=== PATIENT | female | born 1960 | race Caucasian/White ===

== ENCOUNTER 2023-01-30 03:41 | Emergency (ER) | payer BC ==
[2023-01-30 03:47] VITALS: TEMP 98.7
[2023-01-30] MEDS ORDERED: SODIUM CHLORIDE 0.9% 1,000 ML IV STA (04:15)
[2023-01-30] MEDS ORDERED: ACETAMINOPHEN TAB 500 MG TAB PO STA (04:16)
[2023-01-30 04:22] LABS: Basophils % (A) 0 %; Eosinophils # (A) 0.3 k/uL (0-0.7); Eosinophils % (A) 4 %; HCT 46.6 % (34.0-46.0); Lymphocytes # (A) 2.2 k/uL (1.0-4.8); Lymphocytes % (A) 25 %; MCH 31.4 pg (25.0-35.0); MCHC 34.3 g/dL (31.0-37.0); MCV 91.7 fL (80.0-100.0); Mean Platelet Volume 7.2; Monocytes # (A) 0.4 k/uL (0-1.0); Monocytes % (A) 5 %; Neutrophils # (A) 5.8 k/uL (1.3-7.7); Neutrophils % (A) 65 %; Platelet Count 224 k/uL (150-450); RBC 5.08 m/uL (3.80-5.40); RDW 12.1 % (11.5-15.5); WBC 8.9 k/uL (3.8-10.6)
[2023-01-30 04:35] LABS: INR 0.9 (<1.2); Partial Thromboplastin Time 22.7 sec (22.0-30.0); Prothrombin Time 9.4 sec (9.0-12.0)
[2023-01-30 04:36] LABS: ALT 19 U/L (4-34); AST 28 U/L (14-36); African American GFR (CKD) >90 (>60 ml/min/1.73 sqM); Albumin 4.5 g/dL (3.5-5.0); Alkaline Phosphatase 92 U/L (38-126); Anion Gap 6 mmol/L; Blood Urea Nitrogen 19 mg/dL (7-17); Calcium 9.7 mg/dL (8.4-10.2); Carbon Dioxide 30 mmol/L (22-30); Chloride 102 mmol/L (98-107); Glucose 108 mg/dL (74-99); Lipase 131 U/L (23-300); Magnesium 2.1 mg/dL (1.6-2.3); Non-African American GFR(CKD) 90 (>60 ml/min/1.73 sqM); Potassium 3.4 mmol/L (3.5-5.1); Sodium 138 mmol/L (137-145); Total Bilirubin 0.9 mg/dL (0.2-1.3); Total Protein 7.4 g/dL (6.3-8.2)
--- NOTE | 2023-01-30 04:53 | ED ---
General Adult HPI - General Source: patient, RN notes reviewed, old records reviewed Mode of arrival: ambulatory Limitations: no limitations <Alexandre Hawkins - Last Filed: 01/30/23 06:15> <Gordon Norris - Last Filed: 01/30/23 08:47> - General Chief complaint: Chest Pain Stated complaint: Chest pain Time Seen by Provider: 01/30/23 03:56 - History of Present Illness Initial comments: Patient is a 62-year-old female with past medical history remarkable for hypertension who presents emergency Department complaining of intermittent chest pressure sensation for the last hour and a half or so. Describes it as a strange pressure and discomfort located along the sternum of her chest that does not radiate. It is reproducible on palpation. Patient is also complaining of some back pain that has been present for over a week. Describes it as across her upper back as a burning sensation. No known palliative or provocative factors. No significant cardiac history. No history of blood clots. Denies any shortness of breath. Denies fevers, chills, cough. Denies abdominal pain, nausea, vomiting. No other acute complaints at this time. Presents for further evaluation at this time. (Alexandre Hawkins) - Related Data Allergies Allergy/AdvReac Type Severity Reaction Status Date / Time No Known Allergies Allergy Verified 01/30/23 07:18 Review of Systems ROS Other: All systems not noted in ROS Statement are negative. <Alexandre Hawkins - Last Filed: 01/30/23 06:15> ROS Other: All systems not noted in ROS Statement are negative. <Gordon Norris - Last Filed: 01/30/23 08:47> ROS Statement: Those systems with pertinent positive or pertinent negative responses have been documented in the HPI. Review of Systems: CONST: Denies fever EYES: Denies blurry vision ENT: Denies nasal congestion C/V: Endorses chest pain RESP: Denies shortness of breath GI: Denies abdominal pain : Denies dysuria SKIN: Denies rash. MSK: Endorses back pain NEURO: Denies headache (Alexandre Hawkins) Past Medical History Past Medical History: Hypertension History of Any Multi-Drug Resistant Organisms: None Reported Past Surgical History: Section Past Psychological History: No Psychological Hx Reported Smoking Status: Never smoker Past Alcohol Use History: Occasional Past Drug Use History: None Reported <Alexandre Hawkins - Last Filed: 01/30/23 06:15> General Exam Limitations: no limitations <RossAlexandre - Last Filed: 01/30/23 06:15> - General Exam Comments Initial Comments: General: Appears in no acute distress. HEAD: Normal with no signs of head trauma. EYES: PERRLA, EOMI, conjunctiva normal, no discharge. ENT: Hearing grossly intact, normal oropharynx. RESPIRATORY: Clear breath sounds bilaterally. No wheezes, rales, or rhonchi. C/V: Regular rate and rhythm. S1 and S2 auscultated, no edema, peripheral pulses 2+ and intact throughout. Patient's chest pain is reproducible on palpation in the lower third of the sternum. No obvious deformity. ABD: Abd is soft, nontender, nondistended EXT: Normal range of motion, no obvious deformity. Patient's back discomfort is nonreproducible. SKIN: No rashes or lesions observed on exposed skin. NEURO: Alert and oriented 4. No focal sensory strength deficits. (Alexandre Hawkins) Course Vital Signs 01/30/23 01/30/23 01/30/23 03:43 05:20 08:14 Temperature 98.7 F Pulse Rate 110 H 80 78 Respiratory 16 18 18 Rate Blood Pressure 157/75 138/79 115/68 O2 Sat by Pulse 99 98 97 Oximetry Medical Decision Making - Lab Data Result diagrams: 01/30/23 04:10 01/30/23 04:10 - EKG Data -: EKG Interpreted by Me <Alexandre Hawkins - Last Filed: 01/30/23 06:15> - Lab Data Result diagrams: 01/30/23 04:10 01/30/23 04:10 <Gordon Norris - Last Filed: 01/30/23 08:47> - Medical Decision Making Was pt. sent in by a medical professional or institution (, PA, HUSBANDRY TECHNICIAN, urgent care, hospital, or snf...) When possible be specific @ -No Did you speak to anyone other than the patient for history (EMS, parent, family, police, friend...)? What history was obtained from this source @ -No Did you review nursing and triage notes (agree or disagree)? Why? @ -I reviewed and agree with nursing and triage notes Were old charts reviewed (outside hosp., previous admission, EMS record, old EKG, old radiological studies, urgent care reports/EKG's, snf records)? Report findings @ -No old charts were reviewed Differential Diagnosis (chest pain, altered mental status, abdominal pain women, abdominal pain men, vaginal bleeding, weakness, fever, dyspnea, syncope, hea dache, dizziness, GI bleed, back pain, seizure, CVA, palpatations, mental health, musculoskeletal)? @ -Differential Chest Pain: Stable Angina, Unstable Angina, STEMI, NSTEMI Aortic Dissection, Pneumothorax, Musculoskeletal, Esophageal Spasm GERD, Cholecystitis, Pancreatitis, Zoster, this is not meant to be an all-inclusive list. EKG interpreted by me (3pts min.). @ -As above X-rays interpreted by me (1pt min.). @ -Chest X-ray reveals no obvious acute cardio pulmonary process. CT interpreted by me (1pt min.). @ -None done U/S interpreted by me (1pt. min.). @ -None done What testing was considered but not performed or refused? (CT, X-rays, U/S, labs)? Why? @ -None What meds were considered but not given or refused? Why? @ -None Did you discuss the management of the patient with other professionals (jimbo chandra i.eBirdie Valenzuela, PA, HUSBANDRY TECHNICIAN, lab, RT, psych nurse, delinquency prevention social worker, seat builder, teacher, quarantine officer, child support case officer)? Give summary @ -No Was smoking cessation discussed for >3mins.? @ -No Was critical care preformed (if so, how long)? @ -No Were there social determinants of health that impacted care today? How? (Homelessness, low income, unemployed, alcoholism, drug addiction, transportati on, low edu. Level, literacy, decrease access to med. care, halfway, rehab)? @ -No Was there de-escalation of care discussed even if they declined (Discuss DNR or withdrawal of care, Hospice)? DNR status @ -No What co-morbidities impacted this encounter? (DM, HTN, Smoking, COPD, CAD, Cancer, CVA, ARF, Chemo, Hep., AIDS, mental health diagnosis, sleep apnea, morbid obesity)? @ -None Was patient admitted / discharged? Hospital course, mention meds given and route, prescriptions, significant lab abnormalities, going to OR and other pertinent info. @ -Based in the patient's presentation and physical exam, she presents with atypical chest pain. Seems to be more chest wall pain. Also has over one week history of some back discomfort but no known palliative or provocative factors. Discussed with her and we will obtain a cardiac workup including d-dimer screening. She was in agreement this plan. She'll be given Tylenol for chest pain. She also be given a 1 L fluid bolus. EKG showed no signs of acute ischemia. Chest x-ray unremarkable. Patient's laboratory studies are unremarkable, including undetectable troponin and D- dimer is within normal limits. Patient was administered nitroglycerin tablets with no significant improvement in pain at all. Discussed with her the option of admission versus discharge after second troponin and she would like to go home if she can after the second troponin. She'll be administered Toradol as well as Tylenol at this time and a GI cocktail. She was in agreement this plan. She has palpable chest wall pain which appears to be the source of her current symptoms. Repeat troponin will be obtained at 7:10 AM. Patient will be discharged home following repeat troponin Undiagnosed new problem with uncertain prognosis? @ -No Drug Therapy requiring intensive monitoring for toxicity (Heparin, Nitro, Insulin, Cardizem)? @ -No Were any procedures done? @ -No Diagnosis/symptom? @ -Chest wall pain Acute, or Chronic, or Acute on Chronic? @ -Acute Uncomplicated (without systemic symptoms) or Complicated (systemic symptoms)? @ -Uncomplicated Side effects of treatment? @ -none Exacerbation, Progression, or Severe Exacerbation] @ -no Poses a threat to life or bodily function? @ -no . (Alexandre Hawkins) Patient is signed out to me by previous shift physician, Dr. Hawkins. Briefly, patient is 62L female presents with chest pain. She has no significant risk factors. Patient states that her pain is very mild feels like a bruise without any radiation of symptoms to the jaw or arm. She does not have any history of coronary artery disease. Only, but his hypertension. Denies any family history. No history of smoking. Patient reevaluated at 8:45 AM. She is in stable medical condition. She was notified of her labs that her 2 troponins were negative. She has low HEART score. Patient will prefer discharge. She does feel as though she can follow- up with her primary care doctor for outpatient stress test. She understands that she should return to the emergency department if she has any worsening symptoms. (Gordon Norris) - Lab Data Lab Results 01/30/23 01/30/23 01/30/23 Range/Units 04:10 04:10 04:10 WBC 8.9 (3.8-10.6) k/uL RBC 5.08 (3.80-5.40) m/uL Hgb 16.0 (11.4-16.0) gm/dL Hct 46.6 H (34.0-46.0) % MCV 91.7 (80.0-100.0) fL MCH 31.4 (25.0-35.0) pg MCHC 34.3 (31.0-37.0) g/dL RDW 12.1 (11.5-15.5) % Plt Count 224 (150-450) k/uL MPV 7.2 Neutrophils % 65 % Lymphocytes % 25 % Monocytes % 5 % Eosinophils % 4 % Basophils % 0 % Neutrophils # 5.8 (1.3-7.7) k/uL Lymphocytes # 2.2 (1.0-4.8) k/uL Monocytes # 0.4 (0-1.0) k/uL Eosinophils # 0.3 (0-0.7) k/uL Basophils # 0.0 (0-0.2) k/uL PT 9.4 (9.0-12.0) sec INR 0.9 (<1.2) APTT 22.7 (22.0-30.0) sec D-Dimer 0.46 (<0.60) mg/L FEU Sodium 138 (137-145) mmol/L Potassium 3.4 L (3.5-5.1) mmol/L Chloride 102 (98-107) mmol/L Carbon Dioxide 30 (22-30) mmol/L Anion Gap 6 mmol/L BUN 19 H (7-17) mg/dL Creatinine 0.72 (0.52-1.04) mg/dL Est GFR (CKD-EPI)AfAm >90 (>60 ml/min/1.73 sqM) Est GFR (CKD-EPI)NonAf 90 (>60 ml/min/1.73 sqM) Glucose 108 H (74-99) mg/dL Calcium 9.7 (8.4-10.2) mg/dL Magnesium 2.1 (1.6-2.3) mg/dL Total Bilirubin 0.9 (0.2-1.3) mg/dL AST 28 (14-36) U/L ALT 19 (4-34) U/L Alkaline Phosphatase 92 (38-126) U/L Troponin I (0.000-0.034) ng/mL Total Protein 7.4 (6.3-8.2) g/dL Albumin 4.5 (3.5-5.0) g/dL Lipase 131 (23-300) U/L 01/30/23 01/30/23 Range/Units 04:10 07:36 WBC (3.8-10.6) k/uL RBC (3.80-5.40) m/uL Hgb (11.4-16.0) gm/dL Hct (34.0-46.0) % MCV (80.0-100.0) fL MCH (25.0-35.0) pg MCHC (31.0-37.0) g/dL RDW (11.5-15.5) % Plt Count (150-450) k/uL MPV Neutrophils % % Lymphocytes % % Monocytes % % Eosinophils % % Basophils % % Neutrophils # (1.3-7.7) k/uL Lymphocytes # (1.0-4.8) k/uL Monocytes # (0-1.0) k/uL Eosinophils # (0-0.7) k/uL Basophils # (0-0.2) k/uL PT (9.0-12.0) sec INR (<1.2) APTT (22.0-30.0) sec D-Dimer (<0.60) mg/L FEU Sodium (137-145) mmol/L Potassium (3.5-5.1) mmol/L Chloride (98-107) mmol/L Carbon Dioxide (22-30) mmol/L Anion Gap mmol/L BUN (7-17) mg/dL Creatinine (0.52-1.04) mg/dL Est GFR (CKD-EPI)AfAm (>60 ml/min/1.73 sqM) Est GFR (CKD-EPI)NonAf (>60 ml/min/1.73 sqM) Glucose (74-99) mg/dL Calcium (8.4-10.2) mg/dL Magnesium (1.6-2.3) mg/dL Total Bilirubin (0.2-1.3) mg/dL AST (14-36) U/L ALT (4-34) U/L Alkaline Phosphatase (38-126) U/L Troponin I <0.012 <0.012 (0.000-0.034) ng/mL Total Protein (6.3-8.2) g/dL Albumin (3.5-5.0) g/dL Lipase (23-300) U/L - EKG Data EKG Comments: 12-lead Electrocardiogram Interpretation Note EKG was reviewed and interpreted by myself. 12-lead ECG performed at 0358 is in terpreted by me as revealing normal sinus rhythm at a rate of 90 beats per minute. [place] is normal. ND interval is 124 ms, QRS duration is 95 ms, QTc is 419 ms. PVC is present.. There were no ST or T wave abnormalities to suggest myocardial ischemia or injury. R wave progression across the precordium was satisfactory. By my interpretation this EKG is non-diagnostic for acute ischemia. 12-lead Electrocardiogram Interpretation Note EKG was reviewed and interpreted by myself. 12-lead ECG performed at 0515 is interpreted by me as revealing normal sinus rhythm at a rate of 71 beats per minute. [place] is normal. ND interval is 152 ms, QRS duration is 100 ms, QTc is 430 ms.. There were no ST or T wave abnormalities to suggest myocardial ischemia or injury. R wave progression across the precordium was satisfactory. By my interpretation this EKG is non-diagnostic for acute ischemia. No significant change when compared with EKG from 0358 earlier today ( Alexandre Hawkins) Disposition Is patient prescribed a controlled substance at d/c from ED?: No <Alexandre Hawkins - Last Filed: 01/30/23 06:15> Is patient prescribed a controlled substance at d/c from ED?: No Time of Disposition: 08:47 <Gordon Norris - Last Filed: 01/30/23 08:47> Clinical Impression: Chest wall pain Disposition: HOME SELF-CARE Condition: Good Instructions (If sedation given, give patient instructions): Chest Wall Pain (ED) Referrals: Jen Hyde MD [Primary Care Provider] - 1-2 days
[2023-01-30] MEDS ORDERED: ASPIRIN 81 MG PO STA (05:08)
[2023-01-30 05:25] VITALS: RESP 18
[2023-01-30] MEDS: NITROGLYCERIN SL TABS 0.4 MG TAB SUBLINGUAL PRN ×2 (05:59→06:00)
[2023-01-30] MEDS ORDERED: MAG HYDROX/AL HYDROX/SIMETH 30 ML, HYOSCYAMINE ELIXIR 10 ML, LIDOCAINE 2% GLYDO JELLY 1... PO STA ×3 (06:10)
[2023-01-30] MEDS ORDERED: KETOROLAC 15 MG/ML 1 ML VIAL IVP STA (06:10)
--- NOTE | 2023-01-30 06:45 | XR ---
EXAM: XR Chest, 2 Views CLINICAL HISTORY: ITS.REASON XR Reason: Chest Pain TECHNIQUE: Frontal and lateral views of the chest. COMPARISON: No relevant prior studies available. FINDINGS: Lungs: Unremarkable. No consolidation. Pleural space: Unremarkable. No pneumothorax. Heart: Unremarkable. No cardiomegaly. Mediastinum: Unremarkable. Bones/joints: Unremarkable. IMPRESSION: No radiographic evidence of acute cardiopulmonary process.
[2023-01-30 08:18] VITALS: BP 115/68; PULSE 78
== END 2023-01-30 09:17 | disposition home or self-care (01) ==
LOC: EC 03:41
DX: R07.89 Other chest pain (principal); I10 Essential (primary) hypertension
CPT/HCPCS: 36415; 93005; 85379; 80053; 83690; 83735; 84484; 85025; 85610; 85730; 71046; 99285; 96374; 96361; J1885